=== PATIENT | female | born 1960 | race Caucasian/White ===

== ENCOUNTER → 2016-07-09 | Outpatient (CLI) | payer OTHER | LOC: FIMAGING 12:43 | PROVIDERS: ATTEND Internal Medicine Nephrology | DX: N18.3 Chronic kidney disease, stage 3 (moderate) (principal); R93.422 Abnormal radiologic findings on diagnostic imaging of left kidney ==

== ENCOUNTER → 2016-08-08 | Outpatient (CLI) | payer OTHER | LOC: FIMAGING 13:43 | PROVIDERS: ATTEND Family Medicine | DX: M51.34 Other intervertebral disc degeneration, thoracic region (principal); M51.35 Other intervertebral disc degeneration, thoracolumbar region; M51.36 Other intervertebral disc degeneration, lumbar region; M46.96 Unspecified inflammatory spondylopathy, lumbar region; M46.97 Unspecified inflammatory spondylopathy, lumbosacral region; M19.91 Primary osteoarthritis, unspecified site ==

== ENCOUNTER → 2016-08-19 | Outpatient (CLI) | payer OTHER | LOC: CIMAGING 09:49 | PROVIDERS: ATTEND Physician Assistant Medical | DX: N18.9 Chronic kidney disease, unspecified (principal); E11.22 Type 2 diabetes mellitus with diabetic chronic kidney disease; I12.9 Hypertensive chronic kidney disease with stage 1 through stage 4 chronic kidney disease, or unspecified chronic kidney disease | CPT/HCPCS: 76770-PO ==

== ENCOUNTER → 2016-09-15 | Outpatient (CLI) | payer OTHER | LOC: CIMAGING 13:03 | PROVIDERS: ATTEND Family Medicine | DX: Z03.89 Encounter for observation for other suspected diseases and conditions ruled out (principal); E11.39 Type 2 diabetes mellitus with other diabetic ophthalmic complication; I10 Essential (primary) hypertension | CPT/HCPCS: 71020-PO ==

== ENCOUNTER → 2016-09-18 | Outpatient (CLI) | payer OTHER | LOC: FIMAGING 07:10 | PROVIDERS: ATTEND Family Medicine | DX: M51.87 Other intervertebral disc disorders, lumbosacral region (principal); M51.86 Other intervertebral disc disorders, lumbar region; M46.97 Unspecified inflammatory spondylopathy, lumbosacral region; M46.96 Unspecified inflammatory spondylopathy, lumbar region; M48.07 Spinal stenosis, lumbosacral region; M48.06 Spinal stenosis, lumbar region ==

== ENCOUNTER → 2016-11-12 | Outpatient (CLI) | payer OTHER | LOC: FIMAGING 09:22 | PROVIDERS: ATTEND Orthopaedic Surgery Orthopaedic Surgery of the Spine | DX: M51.37 Other intervertebral disc degeneration, lumbosacral region (principal); M53.87 Other specified dorsopathies, lumbosacral region ==

== ENCOUNTER → 2017-01-15 | Outpatient (CLI) | payer OTHER | LOC: FCPNEURO 20:00 | PROVIDERS: ATTEND Psychiatry & Neurology Sleep Medicine | DX: G47.33 Obstructive sleep apnea (adult) (pediatric) (principal) ==

== ENCOUNTER 2017-07-16 07:06 | Day surgery (SDC) | payer OTHER ==
[2017-07-16] MEDS ORDERED: ceFAZolin 2 GM/SWFI 2 GM/20 ML SYR IVP ONE (07:27)
[2017-07-16] MEDS ORDERED: LIDOCAINE 1% 2 ML INJ ID PRN (07:28)
[2017-07-16] MEDS ORDERED: LR 1,000 ML IV ONE (07:28)
[2017-07-16] MEDS ORDERED: NS 1,000 ML IV ONE (07:34)
[2017-07-16 08:22] VITALS: PULSE 80
[2017-07-16 08:25] LABS: PLATELET COUNT 247 10^3/uL (150-400)
--- NOTE | 2017-07-16 09:14 | PDHPUP ---
History & Physical Update H&P update statement: This history and physical update is based on an assessment of the patient which was completed after admission or registration (within 24 hours), but prior to the surgery/procedure.
[2017-07-16] MEDS ORDERED: BUPIVACAINE 0.5% 30 ML SDV ONE (09:16)
[2017-07-16] MEDS ORDERED: POVIDONE-IODINE 30 GM OINTTUBE TP ONE (09:16)
[2017-07-16] MEDS ORDERED: MIDAZOLAM 2 MG/2 ML VIAL ONE (09:19)
[2017-07-16] MEDS ORDERED: MIDAZOLAM 2 MG/2 ML VIAL IVP ONE (09:19)
--- NOTE | 2017-07-16 09:24 | PDANEPAE ---
ANE History of Present Illness Peritoneal dialysis catheter ANE Past Medical History - Cardiovascular History Hx Hypertension: Yes Hx Arrhythmias: No Hx Chest Pain: No Hx Coronary Artery / Peripheral Vascular Disease: No Hx CHF / Valvular Disease: No Hx Palpitations: No Cardiovascular History Comment: Hyperlipidemia - Pulmonary History Hx COPD: No Hx Asthma/Reactive Airway Disease: No Hx Recent Upper Respiratory Infection: No Hx Oxygen in Use at Home: No Hx Sleep Apnea: Yes Sleep Apnea Screening Result - Last Documented: Positive Pulmonary History Comment: TASHI with CPAP - Neurologic History Hx Cerebrovascular Accident: No Hx Seizures: No Hx Dementia: No - Endocrine History Hx Diabetes: Yes Hypothyroid: Yes Hyperthyroid: No Endocrine History Comment: DDII, hypothyroid - Renal History Hx Renal Disorders: Yes Renal History Comment: Chronic renal insufficiency- 14% renal capacity - Liver History Hx Hepatic Disorders: No - Neurological & Psychiatric Hx Hx Neurological and Psychiatric Disorders: Yes Neurological / Psychiatric History Comment: depression - Cancer History Hx Cancer: No - Congenital Disorder History Hx Congenital Disorders: No - GI History GERD: moderate Hx Gastrointestinal Disorders: No - Other Health History Other Health History: diabetic retinopathy,retinal tear - Surgical History Prior Surgeries: lumbar spine surgery. Parathyroidectomy ANE Review of Systems Review of Systems: - Exercise capacity METS (RN): 3 METS ANE Patient History - Allergies Allergies/Adverse Reactions: No Known Allergies Allergy (Unverified 07/11/14 10:25) - Home Medications Home Medications: Atorvastatin Calcium [Lipitor 80 mg] 80 mg PO DAILY 09/08/12 [Last Taken ] Bupropion HCl [Wellbutrin XL 300mg] 300 mg PO 09/08/12 [Last Taken 07/15/17] DULoxetine [Cymbalta 60 MG (RX)] 60 mg PO DAILY 09/08/12 [Last Taken 07/15/17] Fluticasone Nasal [Flonase Nasal [place] (RX)] 2 sprays NASAL DAILY 09/08/12 [ Last Taken 07/15/17] Levothyroxine [Synthroid 200 mcg (RX)] 300 mcg PO DAILY06 09/08/12 [Last Taken 07/15/17] OXcarbazepine [Trileptal 300mg (RX)] 300 mg PO BID 09/08/12 [Last Taken 07/15/17 ] Zolpidem Tartrate 5 mg PO HS 09/08/12 [Last Taken 04/17/17] Amlodipine Besylate 07/15/17 [Last Taken 07/15/17] Avastin PRN 07/15/17 [Last Taken Unknown] Coreg 40 mg 07/15/17 [Last Taken 07/15/17] Escitalopram Oxalate 2 PRN 07/15/17 [Last Taken Unknown] Furosemide 40 mg 07/15/17 [Last Taken 07/15/17] Lantus 100 UNITS/ML (*) 30 units 07/15/17 [Last Taken 07/15/17] Losartan Potassium 07/15/17 [Last Taken 07/15/17] OXcarbazepine 07/15/17 [Last Taken 07/15/17] Vitamin D3 07/15/17 [Last Taken 07/15/17] diphenhydrAMINE 07/15/17 [Last Taken 07/14/17] novoLOG 07/15/17 [Last Taken 07/15/17] - NPO status NPO Status: no food or drink >8 hours NPO Since - Liquids (Date): 07/16/17 NPO Since - Liquids (Time): 00:00 NPO Since - Solids (Date): 07/15/17 NPO Since - Solids (Time): 22:30 - Smoking Hx Smoking Status: Former smoker - Alcohol Use Alcohol Use: Occasionally - Family Anes Hx Family Hx Anesthesia Complications: none ANE Labs/Vital Signs - Labs Result Diagrams: 07/16/17 08:15 07/16/17 08:15 - Vital Signs Blood Pressure: 161/91 Heart Rate: 80 Respiratory Rate: 16 O2 Sat (%): 94 Height: 172.72 cm Weight: 104.326 kg ANE Physical Exam - Airway Neck exam: FROM, decreased ROM Mallampati Score: Class 2 Mouth exam: dentures - Pulmonary Pulmonary: no respiratory distress, no rales or rhonchi - Cardiovascular Cardiovascular: regular rate and rhythym - ASA Status ASA Status: III ANE Anesthesia Plan Anesthesia Plan: general endotracheal anesthesia
[2017-07-16] MEDS ORDERED: ROCURONIUM 50 MG/5 ML VIAL ONE (09:29)
[2017-07-16] MEDS ORDERED: PROPOFOL/EMULSION 500 MG/50 ML BOTTLE IV ONE (09:29)
[2017-07-16] MEDS ORDERED: fentaNYL 250 MCG/5 ML INJ ONE (09:29)
[2017-07-16] MEDS ORDERED: GLYCOPYRROLATE 0.2 MG/1 ML VIAL ONE ×5 (09:30→10:09)
[2017-07-16] MEDS ORDERED: LIDOCAINE 2% 5 ML SDV ONE (09:30)
[2017-07-16] MEDS ORDERED: DEXAMETHASONE 4 MG/ML VIAL ONE (09:30)
[2017-07-16] MEDS ORDERED: PROPOFOL 200 MG/20 ML VIAL ONE (09:42)
[2017-07-16] MEDS ORDERED: METOPROLOL TARTRATE 5 MG/5 ML INJ ONE (09:54)
[2017-07-16] MEDS ORDERED: ONDANSETRON 4 MG/2 ML VIAL ONE ×2 (10:08→10:56)
[2017-07-16] MEDS ORDERED: NEOSTIGMINE METHYLSULFATE 3 MG/3 ML SYR ONE (10:09)
[2017-07-16] MEDS ORDERED: HYDROCODONE/APAP 5/325 TAB PO PRN (10:16)
[2017-07-16] MEDS ORDERED: NALOXONE HCL 0.4 MG/ML INJ IVP PRN (10:16)
[2017-07-16] MEDS ORDERED: ONDANSETRON 4 MG/2 ML VIAL IVP PRN (10:16)
[2017-07-16] MEDS ORDERED: METOCLOPRAMIDE 10 MG/2 ML VIAL IVP PRN (10:16)
[2017-07-16] MEDS ORDERED: fentaNYL 100 MCG/2 ML INJ IVP PRN (10:16)
[2017-07-16] MEDS ORDERED: HYDROmorphONE/DILAUDID 1 MG/ML INJ IVP PRN (10:16)
[2017-07-16] MEDS ORDERED: OXYCODONE/APAP 5/325 TAB PO PRN (10:16)
--- NOTE | 2017-07-16 10:24 | POSTOPPROG ---
Post Op Note Date of Operation: 07/16/17 Surgeon: Alexys Pratt Anesthesiologist: den Anesthesia: GET(General Endotracheal) Pre-op Diagnosis: renal failure Post-op Diagnosis: same Indication: dialysis access Procedure: lap PD cath Findings: good position and flow Inf/Abcess present in the surg proc area at time of surgery?: No Depth: Organ Space EBL: Minimal Complications: 0
[2017-07-16 11:32] VITALS: TEMP 97.5
[2017-07-16 11:40] VITALS: RESP 5
[2017-07-16 11:52] VITALS: O2SAT 91
[2017-07-16 12:26] VITALS: BP 166/92
--- NOTE | 2017-07-16 14:05 | POSTANESTH ---
Post Anesthetic Evaluation Cardiovascular Status: Normal, Stable Respiratory Status: Normal, Stable Level of Consciousness/Mental Status: Can Participate in Eval Pain Control: Adequate, Prn Tx Ordered Nausea/Vomiting Control: Adequate, Prn Tx Ordered Complications Possibly Related to Anesthesia: None Noted
--- NOTE | 2017-07-19 12:17 | GOP ---
[f rep st] OPERATIVE REPORT DATE OF OPERATION: 07/16/2017 SURGEON: Alexys Pratt MD TURKEY BONER: Natalie Barajas NP. PREOPERATIVE DIAGNOSIS: Chronic renal failure. POSTOPERATIVE DIAGNOSIS: Chronic renal failure. PROCEDURE PERFORMED: Laparoscopic peritoneal dialysis catheter placement. FINDINGS: Patient was found to have good flow and position of the catheter. ESTIMATED BLOOD LOSS: Negligible. DESCRIPTION OF PROCEDURE: Patient taken to the operating room where she received satisfactory genera l endotracheal anesthesia. She was placed in the supine position, prepped and draped in usual steril e fashion. A periumbilical incision was made. Dissection was carried down through subcutaneous tiss ue. The fascia was grasped with towel clips and a Veress needle was inserted. Pneumoperitoneum was established. A 10 mm trocar was introduced. Laparoscope introduced. Good visualization was obtaine d. A second trocar was placed in the left lower quadrant. The camera was switched to that trocar an d a swan neck catheter was then advanced with a grasper into the pelvis and positioned there. The 10 mm trocar was then removed. The fascia was closed over the distal Dacron cuff with an 0 Vicryl sutu re and the wound was infiltrated with Marcaine. The other end of the catheter was brought out throug h the left lower quadrant trocar site with its Dacron band being placed in the subcutaneous tissue. 500 cc of saline was instilled into the pelvis and 400 cc was returned without difficulty. The marck ter was attached to its permanent connector. The exit wound was dressed with Betadine ointment, then 2 x 2 and OpSite. The primary incision wound had been closed with 3-0 Vicryl for the subcu and 4-0 Monocryl subcuticular stitch for the skin. She tolerated the procedure well. COMPLICATIONS: None. /[id number]/MODL
== END 2017-07-16 12:20 | disposition home or self-care (01) ==
LOC: FSGY 07:06
PROVIDERS: ATTEND Surgery
PROC: 0WHG43Z Insertion of Infusion Device into Peritoneal Cavity, Percutaneous Endoscopic Approach (ICD-10-PCS; principal; 2017-07-16 08:30)
DX: N18.4 Chronic kidney disease, stage 4 (severe) (principal); E11.22 Type 2 diabetes mellitus with diabetic chronic kidney disease; E11.319 Type 2 diabetes mellitus with unspecified diabetic retinopathy without macular edema; I12.9 Hypertensive chronic kidney disease with stage 1 through stage 4 chronic kidney disease, or unspecified chronic kidney disease; E03.9 Hypothyroidism, unspecified; E78.2 Mixed hyperlipidemia; M79.604 Pain in right leg; N25.81 Secondary hyperparathyroidism of renal origin; G47.33 Obstructive sleep apnea (adult) (pediatric); D64.9 Anemia, unspecified; Z79.4 Long term (current) use of insulin
CPT/HCPCS: C1750; J0690; J1100; J2250; J2405; J2704; J2710; J3010

== ENCOUNTER → 2017-10-01 | Outpatient (CLI) | payer OTHER | LOC: FIMAGING 18:04 | DX: R06.00 Dyspnea, unspecified (principal) ==

== ENCOUNTER → 2018-02-17 | Outpatient (CLI) | payer OTHER | LOC: CIMAGING 13:43 | PROVIDERS: ATTEND Family Medicine | DX: M25.531 Pain in right wrist (principal); M25.521 Pain in right elbow | CPT/HCPCS: 73080-PO; 73110-PO ==

== ENCOUNTER → 2018-08-02 | Outpatient (CLI) | payer OTHER | LOC: FIMAGING 13:15 | PROVIDERS: ATTEND Family Medicine | DX: Z12.31 Encounter for screening mammogram for malignant neoplasm of breast (principal); Z80.3 Family history of malignant neoplasm of breast ==